=== PATIENT | male | born 1985 | race Asian ===

== ENCOUNTER 2023-10-23 08:23 | Emergency (ER) | payer OTHER ==
--- NOTE | 2023-10-23 08:35 | ED Physician Documentation ---
PD HPI BACK PAIN - Stated complaint Stated Complaint: LOWER BACK PX - Chief complaint Chief Complaint: Back Pain - History obtained from History obtained from: Patient - Additional information Additional information: 38-year-old gentleman who is active duty in the [employer]. Otherwise healthy with no history of back problems. 5 days ago he was lifting a heavy bar at work and felt the onset of low back pain which she has never had before. It does not radiate. It is worse if he bends, twists, or lifts his legs. There is no weakness, numbness, tingling, saddle anesthesia, fevers, incontinence, or IVDU. Despite having the pain he has continued to go to the gym every day and do weight lifting which has made the pain worse. PD PAST MEDICAL HISTORY - Past Medical History Past Medical History: No - Past Surgical History Past Surgical History: No - Present Medications Home Medications: Ambulatory Orders Medication Instructions Recorded Confirmed Ibuprofen [Motrin] 800 mg PO Q8H PRN #30 tablet 10/23/23 - Allergies Allergies/Adverse Reactions: Allergies Allergy/AdvReac Type Severity Reaction Status Date / Time No Known Drug Allergies Allergy Verified 10/23/23 08:29 - Social History Does the pt smoke?: No Does the pt drink ETOH?: No Does the pt have substance abuse?: No - POLST Patient has POLST: No PD ED PE NORMAL - Vitals Vital signs reviewed: Yes - General General: Alert and oriented X 3, No acute distress - Back Back: No CVA TTP, No spinal TTP, Other (There is some tenderness of the paralumbar musculature. Normal gait. Does not wince with position changes.) - Extremities Extremities: Other (The patient has equal and normal Achilles and patellar reflexes bilaterally. Normal sensation in all areas of the legs. Patient denies saddle anesthesia. Normal strength in flexion-extension at the ankles, knees, and flexion of the hips.) - Neuro Neuro: Alert and oriented X 3, Normal speech Results - Vitals Vitals: Vital Signs - 24 hr 10/23/23 08:26 Temperature 36.7 C Heart Rate 70 Respiratory 15 Rate Blood Pressure 140/92 H O2 Saturation 99 Oxygen O2 Source Room air PD Medical Decision Making - ED course ED course: This patient has seemingly uncomplicated musculoskeletal back pain. The patient has no "red flags." Specifically denies IV drug use, fevers, incontinence, saddle anesthesia. Spinal epidural abscess was considered, given that the patient has no fever, is not diabetic, has no spinal tenderness, does not use IV drugs, and has no bilateral neurologic symptoms, the diagnosis of spinal epidural abscess is considered exceedingly unlikely. Heat, gentle stretching, NSAIDs, and relative rest with cessation of heavy physical activity was advised. He was offered a muscle relaxer as well which was declined. Departure - Departure Disposition: 01 Home, Self Care Clinical Impression: Lumbar strain Qualifiers: Encounter type: initial encounter Qualified Code(s): S39.012A - Strain of muscle, fascia and tendon of lower back, initial encounter Condition: Good Record reviewed to determine appropriate education?: Yes Instructions: ED Sprain Strain Lumbar Prescriptions: Ibuprofen [Motrin] 800 mg PO Q8H PRN #30 tablet PRN Reason: PAIN &/OR FEVER Comments: Take ibuprofen/Motrin for the anti-inflammatory effects. Heat and gentle stretching. Avoid strenuous activity for the next week or so with no weight lifting or strenuous exercise. It is okay to do simple things like go for walks. Return for new or worsening symptoms. 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
[2023-10-23 08:38] VITALS: BP 140/92; O2SAT 99
== END 2023-10-23 08:43 | disposition home or self-care (01) ==
LOC: ED 08:23
DX: S39.012A Strain of muscle, fascia and tendon of lower back, initial encounter (principal); X50.0XXA Overexertion from strenuous movement or load, initial encounter
CPT/HCPCS: 99282; 99283